=== PATIENT | male | born 1945 | race African-American/Black ===

== ENCOUNTER 2023-04-22 07:56 | Emergency (ER) | payer OTHER ==
--- NOTE | 2023-04-22 08:15 | EDPHYS ---
Physician Documentation [facility] Name: Davis Correa Age: 77 yrs Sex: Male : 1945 Arrival Date: 04/22/2023 Time: 07:56 Bed 15 Private MD: ED Physician Kameron Vasques HPI: 04/22 08:16 This 77 yrs old Black Male presents to ER via Ambulatory with complaints of Ear and sb4 face pain. 08:16 Onset: The symptoms/episode began/occurred yesterday. sb4 08:17 77-year-old male with history of coronary artery disease, COPD, insulin-dependent type sb4 2 diabetes presents with complaints of right ear pain that radiates down the right side of his face. He states it began yesterday and he could not tolerate the pain this morning. He denies any other flulike symptoms, no cough, fever, drainage. He denies any trauma to the area. Historical: - Allergies: 08:12 No Known Allergies; hb - Home Meds: 08:12 unknown diuretic [Active]; unknown antidiabetic [Active]; hb - PMHx: 08:12 DM2; hb - PSHx: 08:12 None; hb - Immunization history:: Adult Immunizations up to date. - Social history:: Smoking status: . ROS: 08:17 Constitutional: Negative for fever, chills, and weight loss. sb4 08:17 ENT: Positive for ear pain, right sided facial pain, Negative for injury or acute deformity, drainage from ear(s), foreign body sensation, Gum pain hearing loss, Teeth pain tinnitus, nasal discharge, rhinorrhea, sinus congestion, sinus pain, sore throat, difficulty swallowing, difficulty handling secretions, hoarseness. 08:17 All other systems are negative. Exam: 08:17 Constitutional: This is a well developed, well nourished patient who is awake, alert, sb4 and in no acute distress. Head/Face: Normocephalic, atraumatic. Eyes: Extra-ocular motions intact. Periorbital areas with no swelling, redness, or edema. Cardiovascular: Regular rate and rhythm with a normal S1 and S2. Respiratory: Lungs have equal breath sounds bilaterally, clear to auscultation and percussion. No rales, rhonchi or wheezes noted. No increased work of breathing, no retractions or nasal flaring. Skin: Warm, dry with normal turgor. Normal color with no rashes, no lesions, and no evidence of cellulitis. MS/ Extremity: Pulses equal, no cyanosis. Neurovascular intact. Full, normal range of motion. Neuro: Awake and alert, GCS 15, oriented to person, place, time, and situation. Cranial nerves II-XII grossly intact. Motor strength 5/5 in all extremities. Sensory grossly intact. Cerebellar exam normal. Normal gait. 08:17 ENT: External ear(s): are unremarkable, Ear canal(s): are normal, TM's: decreased mobility, on the right, fluid levels, Examination of the other ear shows no obvious abnormality, Nose: is normal, Mouth: is normal, Posterior pharynx: is normal, Voice: is normal. Vital Signs: 08:09 BP 181 / 83; Pulse 73; Resp 18; Temp 98.9(O); Pulse Ox 100% on R/A; Weight 92.99 kg; hb Height 5 ft. 10 in. ; Pain 7/10; 08:28 BP 168 / 83; Pulse 68; Resp 19 S; Pulse Ox 97% on R/A; Pain 10/10; kc6 08:09 Body Mass Index 29.41 (92.99 kg, 177.8 cm) hb 08:09 Pain Scale: Adult hb 08:28 Pain Scale: Adult kc6 MDM: 08:03 Patient medically screened. sb4 08:17 Differential diagnosis: viral Infection, bacterial infection, URI, otitis media, otitis sb4 externa, FB in ear, strep throat, flu, covid. Data reviewed: vital signs, nurses notes, and as a result, I will discharge patient. Test considered but Not performed: Labs: covid, flu, strep. Care significantly affected by the following chronic conditions: Diabetes, Hypertension, Chronic Obstructive Pulmonary Disease. Counseling: I had a detailed discussion with the patient and/or guardian regarding: the historical points, exam findings, and any diagnostic results supporting the discharge/admit diagnosis, the presence of at least one elevated blood pressure reading (>120/80) during this emergency department visit, to return to the emergency department if symptoms worsen or persist or if there are any questions or concerns that arise at home. Administered Medications: 08:27 Drug: Dexamethasone IM 10 mg Route: IM; Site: right deltoid; kc6 08:29 Follow up: Response: No adverse reaction kc6 Disposition Summary: 04/22/23 08:14 Discharge Ordered Location: Home sb4 Problem: new sb4 Symptoms: are unchanged sb4 Condition: Stable sb4 Diagnosis - Otalgia, right ear sb4 - Acute serous otitis media, right ear sb4 Followup: sb4 - With: Priya Francois MD - When: 1 week - Reason: If symptoms return, Further diagnostic work-up, Recheck today's complaints, Re-evaluation by your physician Discharge Instructions: - Discharge Summary Sheet sb4 - Otitis Media, Adult sb4 Forms: - Medication Reconciliation Form sb4 - Thank You Letter sb4 - Antibiotic Education sb4 - Prescription Opioid Use sb4 - [email or web address] sb4 Prescriptions: - Augmentin 875-125 mg Oral Tablet - take 1 tablet by ORAL route every 12 hours for 10 days; 20 tablet; Refills: 0, sb4 Product Selection Permitted - Medrol (Aleksandr) 4 mg Oral Tablets, Dose Pack - take 1 tablet by ORAL route as directed - follow package instructions; 1 sb4 packet; Refills: 0, Product Selection Permitted Signatures: Marisol Sarabia RN RN hb Dayana Griffin RN RN kc6 Teodora Serrano PA-C PA-C sb4 Corrections: (The following items were deleted from the chart) 08:14 08:12 Home Meds: "fluid pill:; hb hb 08:14 08:12 Home Meds: "blood pressure pill"; hb hb
--- NOTE | 2023-04-22 08:15 | ER ---
Nurse's Notes [facility] Name: Davis Correa Age: 77 yrs Sex: Male : 1945 Arrival Date: 04/22/2023 Time: 07:56 Bed 15 Private MD: Diagnosis: Otalgia, right ear;Acute serous otitis media, right ear Presentation: 04/22 08:09 Chief complaint: Right ear pain that radiates to right side of face x 2 days. hb Coronavirus screen: At this time, the client does not indicate any symptoms associated with coronavirus-19. Ebola Screen: No symptoms or risks identified at this time. Initial Sepsis Screen: Does the patient meet any 2 criteria? No. Patient's initial sepsis screen is negative. Does the patient have a suspected source of infection? No. Patient's initial sepsis screen is negative. Risk Assessment: Do you want to hurt yourself or someone else? Patient reports no desire to harm self or others. Onset of symptoms was April 21, 2023. 08:09 Method Of Arrival: Ambulatory hb 08:09 Acuity: MALLIKA 4 hb Historical: - Allergies: 08:12 No Known Allergies; hb - Home Meds: 08:12 unknown diuretic [Active]; unknown antidiabetic [Active]; hb - PMHx: 08:12 DM2; hb - PSHx: 08:12 None; hb - Immunization history:: Adult Immunizations up to date. - Social history:: Smoking status: . Screenin:28 [facility] ED Fall Risk Assessment (Adult) History of falling in the last 3 months, kc6 including since admission No falls in past 3 months (0 pts) Confusion or Disorientation No (0 pts) Intoxicated or Sedated No (0 pts) Impaired Gait No (0 pts) Mobility Assist Device Used No (0 pt) Altered Elimination No (0 pt) Score/Fall Risk Level 0 - 2 = Low Risk Oriented to surroundings, Maintained a safe environment, Educated pt \\T\\ family on fall prevention, incl call for assistance when getting out of bed, Assessed \\T\\ reinforced patient's understanding of fall precautions, Hourly rounding (assess needs \\T\\ fall precautionary measures) done. Abuse screen: Denies threats or abuse. Denies injuries from another. Nutritional screening: No deficits noted. Tuberculosis screening: No symptoms or risk factors identified. Assessment: 08:27 General: Appears in no apparent distress. comfortable, Behavior is calm, cooperative, kc6 appropriate for age. Pain: Complains of pain in right ear Pain currently is 10 out of 10 on a pain scale. Neuro: Kerns Agitation-Sedation Scale (RASS): 0 - Alert and Calm Level of Consciousness is awake, alert, obeys commands, Oriented to person, place, time, situation, Appropriate for age. Cardiovascular: Capillary refill < 3 seconds. Respiratory: Airway is patent Trachea midline Respiratory effort is even, unlabored, Respiratory pattern is regular, symmetrical. GI: No signs and/or symptoms were reported involving the gastrointestinal system. : No signs and/or symptoms were reported regarding the genitourinary system. EENT: No signs and/or symptoms were reported regarding the EENT system. Derm: No signs and/or symptoms reported regarding the dermatologic system. Skin is intact, Skin is pink, warm \\T\\ dry. Musculoskeletal: No signs and/or symptoms reported regarding the musculoskeletal system. Circulation, motion, and sensation intact. Capillary refill < 3 seconds, Range of motion: intact in all extremities. Vital Signs: 08:09 BP 181 / 83; Pulse 73; Resp 18; Temp 98.9(O); Pulse Ox 100% on R/A; Weight 92.99 kg; hb Height 5 ft. 10 in. ; Pain 7/10; 08:28 BP 168 / 83; Pulse 68; Resp 19 S; Pulse Ox 97% on R/A; Pain 10/10; kc6 08:09 Body Mass Index 29.41 (92.99 kg, 177.8 cm) hb 08:09 Pain Scale: Adult hb 08:28 Pain Scale: Adult kc6 ED Course: 08:00 Patient arrived in ED. ts1 08:03 Teodora Serrano PA-C is PHCP. sb4 08:03 Kameron Vasques MD is Attending Physician. sb4 08:06 Dayana Griffin RN is Primary Nurse. kc6 08:12 Triage completed. hb 08:12 Arm band placed on. hb 08:13 Priya Francois MD is Referral Physician. sb4 08:28 Patient has correct armband on for positive identification. Bed in low position. Call kc6 light in reach. Side rails up X 1. 08:28 No provider procedures requiring assistance completed. Patient did not have IV access kc6 during this emergency room visit. Administered Medications: 08:27 Drug: Dexamethasone IM 10 mg Route: IM; Site: right deltoid; kc6 08:29 Follow up: Response: No adverse reaction kc6 Medication: 08:29 VIS not applicable for this client. kc6 Outcome: 08:14 Discharge ordered by MD. mckenna 08:28 Discharged to home ambulatory. kc6 08:28 Condition: stable 08:28 Discharge instructions given to patient, Instructed on discharge instructions, follow up and referral plans. medication usage, Demonstrated understanding of instructions, follow-up care, medications, Prescriptions given X 2. 08:29 Patient left the ED. kc6 Signatures: Marisol Sarabia RN RN hb Campbell, Kaitlyn, RN RN kc6 Teodora Serrano PA-C PABrandon [email or web address] Payal Blanton PAS PAS ts1 Corrections: (The following items were deleted from the chart) 08:14 08:12 Home Meds: "fluid pill:; hb hb 08:14 08:12 Home Meds: "blood pressure pill"; hb hb
[2023-04-22] MEDS ORDERED: dexAMETHasone 10 MG/ML VIAL ONE (08:27)
[2023-04-22 08:39] VITALS: BP 168/83; TEMP 98.9; O2SAT 97
== END 2023-04-22 08:29 | disposition home or self-care (01) ==
LOC: ER 07:56
DX: H65.01 Acute serous otitis media, right ear (principal); H92.01 Otalgia, right ear
CPT/HCPCS: 96372; 99284; J1100